=== PATIENT | male | born 1980 | race Caucasian/White ===

== ENCOUNTER 2019-04-27 19:07 | Inpatient (IN) | payer BC, OTHER ==
[2019-04-27] MEDS ORDERED: SODIUM CHLORIDE 0.9% 1,000 ML IV STA (19:38)
[2019-04-27] MEDS ORDERED: VANCOMYCIN IV PER PHARMACY 1 EACH MISC MISCELLANE PRN (19:39)
[2019-04-27] MEDS ORDERED: VANCOMYCIN 1,750 MG in SODIUM CHLORIDE 0.9% 500 ML 500 ML IVPB STA (19:44)
[2019-04-27] MEDS ORDERED: PIPERACILLIN-TAZOBACTAM 3.375 GM in SODIUM CHLORIDE 0.9% 100 ML IVPB SCH ×2 (19:45→22:46)
[2019-04-27] MEDS ORDERED: PIPERACILLIN-TAZOBACTAM 3.375 GM in SODIUM CHLORIDE 0.9% 100 ML IVPB STA (20:10)
[2019-04-27 20:22] LABS: Basophils % (A) 0 %; Eosinophils # (A) 0.1 k/uL (0-0.7); Eosinophils % (A) 2 %; HCT 34.8 % (39.0-53.0); HGB 11.6 gm/dL (13.0-17.5); Lymphocytes # (A) 1.6 k/uL (1.0-4.8); Lymphocytes % (A) 22 %; MCH 29.8 pg (25.0-35.0); MCHC 33.4 g/dL (31.0-37.0); MCV 89.3 fL (80.0-100.0); Mean Platelet Volume 6.5; Monocytes # (A) 0.3 k/uL (0-1.0); Monocytes % (A) 5 %; Neutrophils # (A) 4.9 k/uL (1.3-7.7); Neutrophils % (A) 68 %; Platelet Count 308 k/uL (150-450); RDW 13.5 % (11.5-15.5); WBC 7.2 k/uL (3.8-10.6)
[2019-04-27 20:31] LABS: ALT 18 U/L (21-72); AST 29 U/L (17-59); African American GFR (CKD) >90 (>60 ml/min/1.73 sqM); Albumin 4.1 g/dL (3.5-5.0); Alkaline Phosphatase 56 U/L (38-126); Anion Gap 10 mmol/L; Blood Urea Nitrogen 20 mg/dL (9-20); Calcium 9.5 mg/dL (8.4-10.2); Carbon Dioxide 24 mmol/L (22-30); Chloride 103 mmol/L (98-107); Glucose 98 mg/dL (74-99); Potassium 4.6 mmol/L (3.5-5.1); Sodium 137 mmol/L (137-145); Total Bilirubin 0.6 mg/dL (0.2-1.3); Total Protein 6.9 g/dL (6.3-8.2)
[2019-04-27 20:54] LABS: Appearance,Urine Clear (Clear); Bilirubin,Urine Negative (Negative); Blood,Urine Negative (Negative); Color,Urine Light Yellow; Glucose,Urine (UA) Negative (Negative); Ketones,Urine Negative (Negative); Leukocyte Esterase,Urine Negative (Negative); Nitrite,Urine Negative (Negative); PH, Urine 6.5 (5.0-8.0); Protein,Urine Negative (Negative); Specific Gravity,Urine 1.012 (1.001-1.035)
--- NOTE | 2019-04-27 21:18 | XR ---
EXAMINATION TYPE: XR tibia fibula LT DATE OF EXAM: 04/27/2019 COMPARISON: NONE HISTORY: Pain and fever TECHNIQUE: 2 views FINDINGS: There is intramedullary luis armando fixing the distal fibula. There are anterior skin radha. Ther e is large soft tissue defect over the anterior mid tibia. IMPRESSION: Large soft tissue defect. No sign of osteomyelitis. Old fibular fracture.
--- NOTE | 2019-04-27 21:20 | XR ---
EXAMINATION TYPE: XR ankle complete LT DATE OF EXAM: 04/27/2019 COMPARISON: NONE HISTORY: Fever and pain TECHNIQUE: 3 views FINDINGS: Ankle mortise is anatomic. There is old healed fracture distal shaft of the fibula. I see n o acute fracture. There is no focal bone destruction. There is soft tissue swelling over the lateral ankle. IMPRESSION: Soft tissue swelling. No fracture seen. No sign of osteomyelitis.
[2019-04-27] MEDS ORDERED: IBUPROFEN 400 MG TAB PO PRN (22:32)
[2019-04-27] MEDS ORDERED: NALOXONE 0.4 MG/ML 1 ML VIAL IV PRN (22:32)
[2019-04-27] MEDS ORDERED: ACETAMINOPHEN TAB 325 MG TAB PO PRN (22:32)
[2019-04-27] MEDS ORDERED: MORPHINE SULFATE 4 MG/ML SYRINGE IV PRN (22:32)
--- NOTE | 2019-04-27 22:32 | ED ---
General Adult HPI - General Source: patient, RN notes reviewed, old records reviewed Mode of arrival: ambulatory Limitations: no limitations <Tucker Hill - Last Filed: 04/27/19 22:31> <Chandrakant Holm - Last Filed: 04/27/19 22:41> - General Chief complaint: Skin/Abscess/Foreign Body Stated complaint: infection on leg Time Seen by Provider: 04/27/19 19:22 - History of Present Illness Initial comments: 39-year-old male patient past history of open fracture tibia-fibula left lower extremity approximately 3 years ago presents ED with cellulitis on left lower extremity. Patient was he is initially seen at urgent care approximately one week ago. Patient reports that he was given a shot of Rocephin and placed on Bactrim. Patient ports that cellulitis and anterior aspect of left lower extremity has not improved. Patient reports that has gotten worse. Patient reports that he did have some mild fevers and chills 2 days ago to have resolved. Patient denies any other complaints. Patient denies any chest pain shortness breath abdominal pain nausea vomiting or diarrhea. Systemic: Pt denies fatigue, fever/chills. Pt denies weakness, night sweats, weight loss. Neuro: Pt denies headache, visual disturbances, syncope or pre-syncope. HEENT: Pt denies ocular discharge or irritation, otalgia, rhinorrhea, ph aryngitis or notable lymphadenopathy. Cardiopulmonary: Pt denies chest pain, SOB, heart palpitations, dyspnea on exertion. Abdominal/GI: Pt denies abdominal pain, n/v/d. : Pt denies dysuria, burning w/ urination, frequency/urgency. Denies new onset urinary or bowel incontinence. MSK: Pt denies myalgia, loss of strength or function in extremities. Neuro: Pt denies new onset weakness, paresthesias. (Tucker Hill) - Related Data Home Medications Medication Instructions Recorded Confirmed Chlorhexidine Gluconate [Hibiclens] 1 applic TOPICAL BID 04/27/19 04/27/19 Sulfamethoxazole/Trimethoprim 1 tab PO BID 04/27/19 04/27/19 [Bactrim DS 800-160 mg] Allergies Allergy/AdvReac Type Severity Reaction Status Date / Time No Known Allergies Allergy Verified 04/27/19 19:31 Review of Systems ROS Other: All systems not noted in ROS Statement are negative. <Tucker Hill - Last Filed: 04/27/19 22:31> ROS Other: All systems not noted in ROS Statement are negative. <Chandrakant Holm - Last Filed: 04/27/19 22:41> ROS Statement: Those systems with pertinent positive or pertinent negative responses have been documented in the HPI. Past Medical History Past Medical History: No Reported History History of Any Multi-Drug Resistant Organisms: MRSA Date of last positivie culture/infection: 2018 MDRO Source:: left foot Past Surgical History: No Surgical Hx Reported, Orthopedic Surgery Past Psychological History: No Psychological Hx Reported Smoking Status: Never smoker Past Alcohol Use History: None Reported, Rare Past Drug Use History: None Reported <Tucker Hill - Last Filed: 04/27/19 22:31> General Exam Limitations: no limitations <Tucker Hill - Last Filed: 04/27/19 22:31> - General Exam Comments Initial Comments: Constitutional: NAD, AOX3, Pt has pleasant affect. HEENT: NC/AT, trachea midline, neck supple, no lymphadenopathy. Posterior pharynx non erythematous, without exudates. External ears appear normal, without discharge. Mucous membranes moist. Eyes PERRLA, EOM intact. There is no scleral icterus. No pallor noted. Cardiopulmonary: RRR, no murmurs, rubs or gallops, no JVD noted. Lungs CTAB in anterior and posterior burt. No peripheral edema. Abdominal exam: Abdomen soft and non-distended. Abdomen non-tender to palpation in all 4 quadrants. Bowel sounds active in LLQ. No hepatosplenomegaly. No ecchymosis Neuro: CN II-XII grossly intact. No nuchal rigidity. No raccon eyes, no wilcox sign, no hemotympanum. No cervical spinal tenderness. MSK: Cellulitic change to left anterior tibia region. Mild streaking noted. No warmth, no drainable abscess or fluid collection. No posterior calf tenderness bilaterally, homans sign negative bilaterally. Posterior tibialis and radial pulse +2 bilaterally. Sensation intact in upper and lower extremities. Full active ROM in upper and lower extremities, 5/5 stregnth. (Tucker Hill) Course Vital Signs 04/27/19 04/27/19 19:14 21:24 Temperature 98.8 F Pulse Rate 71 74 Respiratory 18 18 Rate Blood Pressure 108/72 111/63 O2 Sat by Pulse 99 96 Oximetry Medical Decision Making - Lab Data Result diagrams: 04/27/19 20:10 04/27/19 20:10 <Tucker Hill - Last Filed: 04/27/19 22:31> - Lab Data Result diagrams: 04/27/19 20:10 04/27/19 20:10 <Chandrakant Holm - Last Filed: 04/27/19 22:41> - Medical Decision Making 39-year-old male patient past history of open fracture tibia-fibula left lower extremity approximately 3 years ago presents ED with cellulitis on left lower extremity. Patient was he is initially seen at urgent care approximately one week ago. Patient reports that he was given a shot of Rocephin and placed on Bactrim. Patient ports that cellulitis and anterior aspect of left lower extremity has not improved. Patient reports that has gotten worse. Patient re ports that he did have some mild fevers and chills 2 days ago to have resolved. Patient denies any other complaints. Patient denies any chest pain shortness breath abdominal pain nausea vomiting or diarrhea. Patient vital signs stable, afebrile. Physical exam displayed: Cellulitic change to left anterior tibia region. Mild streaking noted. No warmth, no drainable abscess or fluid collection. Laboratory investigations revealed non-impressive CBC, CMP, UA. Plain film of tibia/fibula, ankle displayed soft tissue swelling, no signs of osteomyelitis. Patient will be admitted for failed outpatient treatment of cellulitis with IV antibiotics and orthopedic consult. Case discussed in depth with Dr. Holm, pt admitted to Dr. Vaca. (Tucker Hill) Patient reexamined and reevaluated by myself, Dr. Holm. Patient resting comfortably in bed. Patient does have cellulitis extending from the proximal foot to the area below the knee. Patient has been on outpatient antibiotics for the past 2 and half days with worsening symptoms. I do agree with PA findings. This includes diagnostic interpretation and treatment plan. Case was also discussed in detail with Dr. Vaca, who will admit covering for Dr. Brown. Patient and family updated. (Chandrakant Holm) - Lab Data Lab Results 04/27/19 04/27/19 04/27/19 Range/Units 20:10 20:10 20:10 WBC 7.2 (3.8-10.6) k/uL RBC 3.90 L (4.30-5.90) m/uL Hgb 11.6 L (13.0-17.5) gm/dL Hct 34.8 L (39.0-53.0) % MCV 89.3 (80.0-100.0) fL MCH 29.8 (25.0-35.0) pg MCHC 33.4 (31.0-37.0) g/dL RDW 13.5 (11.5-15.5) % Plt Count 308 (150-450) k/uL Neutrophils % 68 % Lymphocytes % 22 % Monocytes % 5 % Eosinophils % 2 % Basophils % 0 % Neutrophils # 4.9 (1.3-7.7) k/uL Lymphocytes # 1.6 (1.0-4.8) k/uL Monocytes # 0.3 (0-1.0) k/uL Eosinophils # 0.1 (0-0.7) k/uL Basophils # 0.0 (0-0.2) k/uL Sodium 137 (137-145) mmol/L Potassium 4.6 (3.5-5.1) mmol/L Chloride 103 (98-107) mmol/L Carbon Dioxide 24 (22-30) mmol/L Anion Gap 10 mmol/L BUN 20 (9-20) mg/dL Creatinine 1.09 (0.66-1.25) mg/dL Est GFR (CKD-EPI)AfAm >90 (>60 ml/min/1.73 sqM) Est GFR (CKD-EPI)NonAf 85 (>60 ml/min/1.73 sqM) Glucose 98 (74-99) mg/dL Plasma Lactic Acid Danie 0.7 (0.7-2.0) mmol/L Calcium 9.5 (8.4-10.2) mg/dL Total Bilirubin 0.6 (0.2-1.3) mg/dL AST 29 (17-59) U/L ALT 18 L (21-72) U/L Alkaline Phosphatase 56 (38-126) U/L Total Protein 6.9 (6.3-8.2) g/dL Albumin 4.1 (3.5-5.0) g/dL Urine Color Urine Appearance (Clear) Urine pH (5.0-8.0) Ur Specific Joiner (1.001-1.035) Urine Protein (Negative) Urine Glucose (UA) (Negative) Urine Ketones (Negative) Urine Blood (Negative) Urine Nitrite (Negative) Urine Bilirubin (Negative) Urine Urobilinogen (<2.0) mg/dL Ur Leukocyte Esterase (Negative) 04/27/19 Range/Units 20:41 WBC (3.8-10.6) k/uL RBC (4.30-5.90) m/uL Hgb (13.0-17.5) gm/dL Hct (39.0-53.0) % MCV (80.0-100.0) fL MCH (25.0-35.0) pg MCHC (31.0-37.0) g/dL RDW (11.5-15.5) % Plt Count (150-450) k/uL Neutrophils % % Lymphocytes % % Monocytes % % Eosinophils % % Basophils % % Neutrophils # (1.3-7.7) k/uL Lymphocytes # (1.0-4.8) k/uL Monocytes # (0-1.0) k/uL Eosinophils # (0-0.7) k/uL Basophils # (0-0.2) k/uL Sodium (137-145) mmol/L Potassium (3.5-5.1) mmol/L Chloride (98-107) mmol/L Carbon Dioxide (22-30) mmol/L Anion Gap mmol/L BUN (9-20) mg/dL Creatinine (0.66-1.25) mg/dL Est GFR (CKD-EPI)AfAm (>60 ml/min/1.73 sqM) Est GFR (CKD-EPI)NonAf (>60 ml/min/1.73 sqM) Glucose (74-99) mg/dL Plasma Lactic Acid Danie (0.7-2.0) mmol/L Calcium (8.4-10.2) mg/dL Total Bilirubin (0.2-1.3) mg/dL AST (17-59) U/L ALT (21-72) U/L Alkaline Phosphatase (38-126) U/L Total Protein (6.3-8.2) g/dL Albumin (3.5-5.0) g/dL Urine Color Light Yellow Urine Appearance Clear (Clear) Urine pH 6.5 (5.0-8.0) Ur Specific Joiner 1.012 (1.001-1.035) Urine Protein Negative (Negative) Urine Glucose (UA) Negative (Negative) Urine Ketones Negative (Negative) Urine Blood Negative (Negative) Urine Nitrite Negative (Negative) Urine Bilirubin Negative (Negative) Urine Urobilinogen 4.0 (<2.0) mg/dL Ur Leukocyte Esterase Negative (Negative) Disposition Is patient prescribed a controlled substance at d/c from ED?: No <Tucker iHll - Last Filed: 04/27/19 22:31> <Chandrakant Holm - Last Filed: 04/27/19 22:41> Clinical Impression: Cellulitis Disposition: ADMITTED IP TO THIS HOSP Condition: Serious
[2019-04-27] MEDS: SODIUM CHLORIDE 0.9% 1,000 ML IV SCH (23:06)
[2019-04-28] MEDS: SODIUM CHLORIDE 0.9% 1,000 ML IV SCH ×3 (07:51→23:36)
[2019-04-28] MEDS ORDERED: VANCOMYCIN 1,750 MG in SODIUM CHLORIDE 0.9% 500 ML 500 ML IVPB SCH (09:00)
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
[2019-04-28 11:59] LABS: African American GFR (CKD) >90 (>60 ml/min/1.73 sqM)
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
[2019-04-28] MEDS: VANCOMYCIN 1,500 MG in SODIUM CHLORIDE 0.9% 250 ML IVPB SCH ×2 (17:12→23:36)
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
[2019-04-29] MEDS ORDERED: VANCOMYCIN TROUGH DUE 1 EACH MISC MISCELLANE ONE (07:00)
[2019-04-29] MEDS: SODIUM CHLORIDE 0.9% 1,000 ML IV SCH (08:16)
[2019-04-29] MEDS ORDERED: FAMOTIDINE 20 MG TAB PO SCH (09:00)
[2019-04-29] MEDS ORDERED: ENOXAPARIN 40 MG/0.4 ML SYRINGE SQ SCH (09:00)
[2019-04-29] MEDS: VANCOMYCIN 1,500 MG in SODIUM CHLORIDE 0.9% 250 ML IVPB SCH (09:39)
[2019-04-29 10:26] LABS: African American GFR (CKD) >90 (>60 ml/min/1.73 sqM)
[2019-04-29 12:20] VITALS: BP 103/53; PULSE 56; RESP 16; TEMP 98
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
== END 2019-04-29 13:55 | disposition home or self-care (01) | DRG 603 ==
LOC: EC 19:07 → 4MS4W 22:06
PROVIDERS: ADMIT Internal Medicine Geriatric Medicine; ATTEND Internal Medicine Geriatric Medicine
DX: L03.116 Cellulitis of left lower limb (principal); M21.372 Foot drop, left foot; Z82.49 Family history of ischemic heart disease and other diseases of the circulatory system; Z83.3 Family history of diabetes mellitus; Z86.14 Personal history of Methicillin resistant Staphylococcus aureus infection; Z96.642 Presence of left artificial hip joint; Z87.81 Personal history of (healed) traumatic fracture; S32.9XXS Fracture of unspecified parts of lumbosacral spine and pelvis, sequela; S82.402S Unspecified fracture of shaft of left fibula, sequela; V29.9XXS Motorcycle rider (driver) (passenger) injured in unspecified traffic accident, sequela
CPT/HCPCS: 36415; 80053; 80202; 81003; 82565; 83605; 85025; 87040; 96365; 96366; 96367; 99285

== ENCOUNTER → 2019-08-21 | Outpatient (CLI) | payer OTHER ==
[2019-08-21 09:54] LABS: Basophils % (A) 1 %; Eosinophils # (A) 0.2 k/uL (0-0.7); Eosinophils % (A) 4 %; HCT 41.9 % (39.0-53.0); HGB 14.1 gm/dL (13.0-17.5); Lymphocytes # (A) 2.1 k/uL (1.0-4.8); Lymphocytes % (A) 39 %; MCH 30.9 pg (25.0-35.0); MCHC 33.7 g/dL (31.0-37.0); MCV 91.7 fL (80.0-100.0); Mean Platelet Volume 5.4; Monocytes # (A) 0.3 k/uL (0-1.0); Monocytes % (A) 5 %; Neutrophils # (A) 2.7 k/uL (1.3-7.7); Neutrophils % (A) 49 %; Platelet Count 327 k/uL (150-450); RBC 4.57 m/uL (4.30-5.90); RDW 12.8 % (11.5-15.5); WBC 5.5 k/uL (3.8-10.6)
[2019-08-21 18:58] LABS: African American GFR (CKD) 96.8 (60.0-200.0); Albumin 4.5 g/dL (3.80-4.90); Albumin/Globulin Ratio 2.14 (1.60-3.17); Anion Gap 10.8 mmol/L (4.00-12.00); BUN/Creat Ratio 17.27 Ratio (12.00-20.00); Calcium 9.6 mg/dL (8.7-10.3); Carbon Dioxide 25.2 mmol/L (21.6-31.8); Chol/HDL Ratio 3.69; Globulin 2.1 g/dL (1.6-3.3); LDL Cholesterol,Calculated 149.8 mg/dL (0.0-131.0); Potassium 4.6 mmol/L (3.5-5.5); Total Bilirubin 0.6 mg/dL (0.2-1.2); Total Protein 6.6 g/dL (6.2-8.2); VLDL Calculation 17.2 mg/dL (5.00-40.00)
== END | disposition home or self-care (01) ==
LOC: LABWHC1 09:11
PROVIDERS: ATTEND Family Medicine
DX: Z00.00 Encounter for general adult medical examination without abnormal findings (principal)
CPT/HCPCS: 36415; 80053; 80061; 84443; 85025